=== PATIENT | male | born 1945 | race African-American/Black ===

== ENCOUNTER → 2025-03-18 | Day surgery (SDC) | payer MEDICARE, OTHER ==
[~2025-03-18] VITALS: Ht 188 cm; Wt 65.3 kg
[~2025-03-18] MED LIST: APIX2.5T PO; GABA-1250 PO; GLYCOPYRROLATE 0.2 MG/ML 1ML VIAL ONE; HYDR-4795 PO; HYDROmorphone HCL 2 MG/ML VL/or syr IV PRN; HYDROmorphone HCL 2 MG/ML VL/or syr ONE; ISOS1TAB37 PO; KETAMINE 50mg/ML 10ml Vial 0 ML ONE; KETOROLAC TROMETH 30 MG/ML 1ML VIAL IV ONE; LIDOCAINE 1% INJ PF 5ML AMP ONE; LIDOCAINE HCL 2% TOP JELLY 5ML TOP ONE; METOCLOPRAMIDE HCL 5MG/ml INJ 2ml VIAL IV PRN; MIDAZOLAM HCL 2MG/2ML 2ml VIAL (1mg/ml) ONE; MORPHINE SULFATE 4 MG/ML SYR/VIAL IV PRN; MORPHINE SULFATE INJ 2 MG/ml SYRG IV PRN; NEOSTIGMINE 1 MG/ML INJ (10mg/10ML VIAL) ONE; OMEP20TA PO; ONDANSETRON HCL 4 MG/2 ML VIAL ONE; PROPOFOL 10 MG/ML 20 ML IV ONE; ROCURONIUM 10MG/ML 10ML VIAL IV ONE; SODIUM CHLORIDE LOCK 50 ML ONE; SUCCINYLCHOLINE CHLORIDE 20 MG/ML 10ML VIAL IV ONE; TRAZ-228 PO; ceFAZolin 2 GM/D5W50ml 50 ML IV ONE; fentaNYL CITRATE 100 MCG/2 ML VL ONE
[2025-03-18 06:23] VITALS: BP 160/92; PULSE 95; RESP 18; TEMP 97.8; O2SAT 96
== END | disposition home or self-care (01) ==
LOC: SUR 06:14
PROVIDERS: ATTEND Orthopaedic Surgery Sports Medicine
DX: M75.121 Complete rotator cuff tear or rupture of right shoulder, not specified as traumatic (principal); Z53.8 Procedure and treatment not carried out for other reasons; I48.19 Other persistent atrial fibrillation; Z87.891 Personal history of nicotine dependence
CPT/HCPCS: J0330; J0690; J3010; J0169; J1100; J2250; J2405; J2704

== ENCOUNTER 2025-05-13 07:17 | Inpatient (IN) | payer MEDICARE, OTHER ==
[~2025-05-13] VITALS: Ht 188 cm; Wt 63.7 kg
[~2025-05-13 07:17] MED LIST changes: -GLYCOPYRROLATE 0.2 MG/ML 1ML VIAL ONE; -HYDROmorphone HCL 2 MG/ML VL/or syr IV PRN; -HYDROmorphone HCL 2 MG/ML VL/or syr ONE; -KETAMINE 50mg/ML 10ml Vial 0 ML ONE; -KETOROLAC TROMETH 30 MG/ML 1ML VIAL IV ONE; -LIDOCAINE 1% INJ PF 5ML AMP ONE; -LIDOCAINE HCL 2% TOP JELLY 5ML TOP ONE; -METOCLOPRAMIDE HCL 5MG/ml INJ 2ml VIAL IV PRN; -MIDAZOLAM HCL 2MG/2ML 2ml VIAL (1mg/ml) ONE; -MORPHINE SULFATE 4 MG/ML SYR/VIAL IV PRN; -MORPHINE SULFATE INJ 2 MG/ml SYRG IV PRN; -NEOSTIGMINE 1 MG/ML INJ (10mg/10ML VIAL) ONE; -ONDANSETRON HCL 4 MG/2 ML VIAL ONE; -PROPOFOL 10 MG/ML 20 ML IV ONE; -ROCURONIUM 10MG/ML 10ML VIAL IV ONE; -SODIUM CHLORIDE LOCK 50 ML ONE; -SUCCINYLCHOLINE CHLORIDE 20 MG/ML 10ML VIAL IV ONE; -ceFAZolin 2 GM/D5W50ml 50 ML IV ONE; -fentaNYL CITRATE 100 MCG/2 ML VL ONE
[2025-05-13] MEDS: ceFAZolin 2 GM/D5W50ml 50 ML IV ONE (07:21)
[2025-05-13] MEDS ORDERED: ETOMIDATE (2MG/ML) 20ML VIAL IV ONE (08:26)
[2025-05-13] MEDS ORDERED: LIDOCAINE HCL 2% TOP JELLY 5ML TOP ONE (08:26)
[2025-05-13] MEDS ORDERED: MORPHINE SULF PF 5 MG/10 ML VIAL ONE (08:26)
[2025-05-13] MEDS ORDERED: fentaNYL CITRATE 100 MCG/2 ML VL ONE (08:26)
[2025-05-13] MEDS ORDERED: KETAMINE 50mg/ML 1ml syringe ONE (08:26)
[2025-05-13] MEDS ORDERED: SODIUM CHLORIDE LOCK 50 ML ONE (08:26)
[2025-05-13] MEDS ORDERED: ROCURONIUM 10MG/ML 10ML VIAL IV ONE (08:26)
[2025-05-13] MEDS ORDERED: MIDAZOLAM HCL 2MG/2ML 2ml VIAL (1mg/ml) ONE (08:26)
[2025-05-13] MEDS ORDERED: LIDOCAINE 1% INJ PF 5ML AMP ONE (08:26)
[2025-05-13] MEDS ORDERED: ONDANSETRON HCL 4 MG/2 ML VIAL ONE (08:26)
[2025-05-13] MEDS: BUPIVACAINE HCL 50 ML ONE (09:27)
--- NOTE | 2025-05-13 09:51 | DVHOP2 ---
Operative Report - 2 Report Details Date: 05/13/25 Preop Diagnosis: Right shoulder rotator cuff tear Postop Diagnosis: Right shoulder rotator cuff tear Surgeon: Michelle Shields MD Anesthesiologist: Dr Lemus Anesthesia: General, Regional Consent: The patient was informed of the risks and benefits of the procedure. These include but are not limited to complications of anesthesia, postoperative infection, incomplete relief of symptoms, recurrence of symptoms, damage to blood vessels, nerves and tendons, deep venous thrombosis, pulmonary embolism and possible need for repeat surgery in the future. Estimated Blood Loss: Less than 5 mL Indications for Surgery: The patient is a 79-year-old male who had a prior history of rotator cuff repair. He continued to have significant pain. MRI did not show any significant rotator cuff tear. However because of his symptoms, it was considered that he may have a subscapularis tear or small re-tear of the original repair and a diagnostic arthroscopy was indicated. Benefits, risks and treatment alternatives of the surgery were discussed. Specific complications such as neurovascular injury, infection, arthrofibrosis, loss of limb or life were discussed. He decided to proceed with the surgical option. Name of Procedure Performed Right shoulder arthroscopy with rotator cuff repair. Procedure Details Procedure Details: The patient was identified in the preoperative holding area and the surgical site was marked. The consent was verified. The patient was brought into the operating room and placed supine on the operating table. General anesthesia was administered. The beachchair attachment was applied to the operating table. The patient was now brought up into the beachchair position, approximately 60 degrees. The arm was prepped and draped in the usual sterile manner. The arm was placed in the attachment for the spyder, mechanical arm fisher. The extremity was examined under anesthesia and was found to have good passive range of motion. A timeout was performed to confirm the identity of the patient, the nature of surgery, the site of surgery, the available of implants and x-rays and allergies to medications A standard posterior portal established. A 30 degree scope was inserted A standard anterior portal was established. A probe was inserted and the findings are as follows: 1. Intact subscapularis tendon 2. Minor fraying biceps tendon 3. Circumferential degenerative labral tear 4. Grade I-II chondromalacia 5. Significant synovitis 6. Intact articular sided rotator cuff tear The subacromial space was entered. Significant bursitis was noted. Decompression was carried out with bursectomy. The rotator cuff tear was visualized. This was a near full-thickness bursal sided tear. This was a medium sized tear after debridement. The articular sided cuff tissue was left intact for early mobilization. I decided to do a double row repair for this tear. A medial row all suture anchor was inserted. 2 additional portals were made, the posterior lateral portal and the superior portal for this. A cannula was inserted into the lateral portal. A suture penetration and grasping device was used to grasp the tissue and passed the sutures. The sutures were sequentially passed from anterior to posterior direction. 6 passes were made. The sutures were now tied for an excellent medial row footprint coverage. All six of the sutures were now inserted into a knotless lateral row anchor. This was used as per manufacture's guidelines. A punch was used. Next, the anchor was used and inserted into the bone. Good fixation was noted. Subacromial decompression was completed with acromioplasty to remove approximately 5 mm of acromion as it was downsloping in nature. Irrigation was given and the skin portals were closed with 3-0 nylon Sterile dressing was applied. Local anesthetic was given. Shoulder immobilizer was applied Disposition: Good, the patient was extubated and taken to recovery without any complications. The patient was examined in the recovery and had intact neurovascular exam Plan: To remain in the brace. Follow-up in 1 week. Condition Good Disposition Home MICHELLE SHIELDS MD May 13, 2025 09:51
[2025-05-13] MEDS ORDERED: METOCLOPRAMIDE HCL 5MG/ml INJ 2ml VIAL IV PRN (10:00)
[2025-05-13] MEDS ORDERED: MORPHINE SULFATE INJ 2 MG/ml SYRG IV PRN (10:00)
[2025-05-13] MEDS ORDERED: HYDROmorphone HCL 2 MG/ML VL/or syr IV PRN ×2 (10:00)
[2025-05-13] MEDS ORDERED: MORPHINE SULFATE 4 MG/ML SYR/VIAL IV PRN (10:00)
[2025-05-13 11:27] VITALS: O2SAT 96
--- NOTE | 2025-05-13 12:36 | DVHINCON2 ---
PIERO MILES [facility] 05/13/25 1236: Date Seen: May 13, 2025 Referring Physician MD Beni Reason for Consultation Irregular heart rhythm History of Present Illness This is a pleasant 79-year-old man who presented for an ambulatory right shoulder repair secondary to a nontraumatic partial rupture of the right rotator cough. Preprocedure the patient was found with a blood pressure of 227/125 mmHg for which he was medicated with metoprolol 5 mg IV and hydralazine 5 mg IV. Medical staff at bedside reported during the intubation process the patient's blood pressure dropped (not recorded) with an associated irregular heart rhythm with a rapid ventricular rate. At that time, the patient was medicated with phenylephrine IV, morphine IV, fentanyl IV, and Versed IV. The patient underwen t an eventual 12-lead electrocardiogram revealing a sinus tachycardia rhythm at 116 bpm with an associated RBBB and multiple premature atrial contractions. A second 12-lead electrocardiogram was obtained revealing aforementioned rhythm. Per patient, he underwent cardiac risk stratification by primary medical records specialist Dr. Joiner. At time of assessment, the patient denied any cardiac symptoms. Significant medical history includes congestive heart failure with LVEF at 37% in 2023, history of left lower extremity DVT on low-dose Eliquis, hypertension, dyslipidemia, peripheral neuropathy, eczema, and former cigarette user. Past Medical History Past medical history reviewed. No other significant than mentioned above. Past Surgical History Past surgical history reviewed. No other significant than mentioned above. Family History Family history reviewed. Social History Denies the use of illicit drugs, alcohol, or tobacco use. Allergies: Coded Allergies: NO KNOWN ALLERGIES (Unverified , 03/14/25) Home Meds Reported Medications Apixaban Base (ELIQUIS) 2.5 Mg Tab, PO BID, TAB 03/14/25 Trazodone Hcl (Trazodone Hcl) 100 Mg Tab, 50 MG PO QPM, TAB 03/14/25 Gabapentin (Gabapentin) 300 Mg Cap, 300 MG PO, CAP 03/14/25 Hydrocodone-Acetaminophen (Hydrocodone Bitartrate/AC 7.5-325 mg) 1 Tab Tab, 1 TAB PO PRN, TAB 03/14/25 Omeprazole (Gnp Omeprazole) 20 Mg Tab, 20 MG PO DAILY, TAB 03/14/25 Isosorbide Dinitrate (Isosorbide Dinitrate) 30 Mg Tab, 30 MG PO DAILY, TAB 03/14/25 Home Meds Home medications reviewed. Current Medications Current Medications Medications (Trade) Dose Ordered Sig/Brandi Route PRN Reason Start Time Stop Time Status Last Admin Metoclopramide HCl (Reglan Injection) 10 mg ONCE PRN IV NAUSEA / VOMITING 05/13/25 10:00 05/13/25 11:23 DC Hydromorphone HCl (Dilaudid Injection) 0.5 mg Q10M PRN IV SEVERE PAIN (7-10 PAIN SCALE) 05/13/25 10:00 05/13/25 11:23 DC Morphine Sulfate 2 mg Q4H PRN IV BREAKTHRU PAIN SCALE 7-10 05/13/25 10:00 05/13/25 14:01 Hydromorphone HCl (Dilaudid Injection) 0.25 mg Q10M PRN IV MODERATE PAIN (4-6 PAIN SCALE) 05/13/25 10:00 05/13/25 11:23 DC Morphine Sulfate 1 mg Q30M PRN IV SEVERE PAIN (7-10 PAIN SCALE) 05/13/25 10:00 05/13/25 12:01 DC Review of Systems Constitutional: No symptom reported Ears, Nose, & Throat: No symptom reported Eyes: No symptom reported Neurological: No symptoms reported Pulmonary/Respiratory: No symptom reported Cardiovascular: No symptom reported Gastrointestinal: No symptom reported Genitourinary: No symptom reported Musculoskeletal: Right shoulder pain Skin: No symptom reported Psychiatric: No symptom reported Endocrine: No symptom reported Hemotologic/Lymphatic: No symptom reported Vital Signs Vital Signs Date Time Temp Pulse Resp B/P (MAP) Pulse Ox O2 Delivery O2 Flow Rate FiO2 05/13/25 07:26 97.5 90 18 179/109 (132) 96 97.5 Physical Exam General Appearance: Cooperative. Well developed. Well nourished. In no acute distress Head Exam: Normal inspection Neck Exam: Normal inspection. Non-tender. Normal alignment Pulmonary/Respiratory: Chest non-tender. Clear bilateral breath sounds Cardiovascular/Chest: Regular rate and rhythm. S1, S2. Sinus rhythm with PACs and RBBB. No murmurs. No JVD. Peripheral Pulses: 2+ Radial (R). 2+ Radial (L). 2+ Pedal (R). 2+ Pedal (L) Abdominal Exam: Normal bowel sounds Ankle Exam: Negative ankle edema Lower extremities: Negative lower extremity edema Neuro/Mental Status: A&O x4. Coherent Thoughts/Psych: Normal thought pattern. Appropriate mood and affect. Good judgement and insight Appearance: In no acute distress Skin Exam: Normal inspection. Normal color. Warm. Dry Assessment Hypertensive urgency Intraoperative acute hypotension Chronic compensated HFrEF (LVEF 37% in 2023) History of LLE DVT on low-dose Eliquis Dyslipidemia Former smoker Plan/Recommendation (Dr. Calvin) Preoperatively the patient presented with a hypertensive urgency and was treated accordingly with metoprolol and hydralazine IV. During the intubation process the patient became hypotensive for which he was medicated with phenylephrine, Versed, fentanyl, and morphine. The patient has undergone two 12-lead electrocardiograms revealing a sinus tachycardia rhythm with an associated right bundle branch block and multiple premature atrial contractions. He is hemodyna mically stable. We will continue further cardiac evaluation with a transthoracic echocardiogram to evaluate cardiac function. Monitor ECG changes closely and notify accordingly. In the setting of an unremarkable echocardiogram and no cardiac arrhythmias identified, there is no further cardiac workup indicated at this time. Thank you for allowing us to participate in this patient's care. Please call if you have any questions or concerns. Critical care time: 40 min. This medical document was created using an electronic medical record system with voice recognition software and computerized dictation system. Although this document has been carefully reviewed, there might still be some phonetic and typographical errors. Occasional wrong-word or ``sound-alike substitutions may have occurred due to the inherent limitations of voice recognition software. These areas are purely typographical due to imperfections of the software programs and do not reflect any compromise in the patient's medical care. Please read the chart carefully and recognize, using context, where these substitutions have occurred. Plan discussed with: Patient, Other NYHA Physical activity limitations: NA Date of Service: May 13, 2025 Billing Provider: PIERO MILES [facility] Cardiology Common Codes: 08952-[id number] CARE 30-74 MIN DORENE CALVIN MD 05/13/25 2006: Date Seen: May 13, 2025 Referring Physician Attestation note; Patient was seen and examined at bedside and plan was formulated with Ms. Ivy Miles cardiology [employer] as above. Dorene Calvin MD,M.Sc. Interventional Cardiology Allergies: Coded Allergies: NO KNOWN ALLERGIES (Unverified , 03/14/25) Home Meds Reported Medications Apixaban Base (ELIQUIS) 2.5 Mg Tab, PO BID, TAB 03/14/25 Trazodone Hcl (Trazodone Hcl) 100 Mg Tab, 50 MG PO QPM, TAB 03/14/25 Gabapentin (Gabapentin) 300 Mg Cap, 300 MG PO, CAP 03/14/25 Hydrocodone-Acetaminophen (Hydrocodone Bitartrate/AC 7.5-325 mg) 1 Tab Tab, 1 TAB PO PRN, TAB 03/14/25 Omeprazole (Gnp Omeprazole) 20 Mg Tab, 20 MG PO DAILY, TAB 03/14/25 Isosorbide Dinitrate (Isosorbide Dinitrate) 30 Mg Tab, 30 MG PO DAILY, TAB 03/14/25 PIERO MILES May 13, 2025 12:36 DORENE CALVIN MD May 13, 2025 20:06
--- NOTE | 2025-05-13 13:18 | DVH ---
INDICATION: CHF TECHNIQUE: Frontal view of the chest. COMPARISON: None FINDINGS: Cardiomegaly. The heart and mediastinal contours are grossly unremarkable. There is no evidence of pleural disease. The lungs are clear. The bony structures of the chest are intact without fracture. IMPRESSION: 1. Cardiomegaly with CHF.
[2025-05-13 13:46] LABS: Hematocrit 43.9 % (41.0-53.0); Hemoglobin 14.9 g/dL (13.5-17.5); Mean Corpuscular Hemoglobin 32.9 pg (28.0-32.0); Mean Corpuscular Volume 97.1 fL (80.0-100.0); Nucleated Red Blood Cells % 0.4 %
[2025-05-13] MEDS: KETOROLAC TROMETH 30 MG/ML 1ML VIAL IV ONE ×2 (13:50→22:29)
[2025-05-13 13:59] LABS: Alanine Aminotransferase 27 U/L (7-40); Albumin 4.6 g/dL (3.2-4.8); Alkaline Phosphatase 53 U/L (46-116); Anion Gap 12 (5-15); BUN/Creatinine Ratio 6.5 (10.0-20.0); Bilirubin, Total 1.2 mg/dL (0.2-1.0); Blood Urea Nitrogen 5 mg/dL (9-23); Calcium 9.9 mg/dL (8.7-10.4); Carbon Dioxide 23 mmol/L (20-31); Chloride 104 mmol/L (98-107); Glucose 98 mg/dL (74-106); Magnesium 2.0 mg/dL (1.6-2.6); Potassium 4.1 mmol/L (3.5-5.1); Sodium 139 mmol/L (136-145); Total Protein 7.4 g/dL (5.7-8.2)
[2025-05-13 14:09] LABS: Triglycerides 59 mg/dL (< 150)
[2025-05-13 14:11] LABS: Cholesterol 172 mg/dL (< 200)
[2025-05-13 14:15] LABS: HDL Cholesterol 112 mg/dL (40-59)
--- NOTE | 2025-05-13 14:41 | DVHHP2 ---
History of Present Illness History of Present Illness This is a 79-year-old male with PMHx of DVT, hypertension, dyslipidemia, peripheral neuropathy, eczema, and former tobacco use who was scheduled for elective right rotator cuff repair earlier today. During induction, his BP acutely increased to 227/125 and he received IV metoprolol and hydralazine. Afterthat he started to have low BP and anesthesia staff found an irregular rhythm with rapid ventricular response, although no rhythm strip or printed tracing is available for review. His EKG demonstrated sinus tachycardia with right bundle branch block and both atrial ectopy. He denies chest discomfort, palpitations, or dizziness at this time. At bedside, he is stable and a symptomatic. He is being admitted for observation, cardiac evaluation, and optimization before rescheduling orthopedic surgery. Past Medical History: DVT, hypertension, dyslipidemia, peripheral neuropathy, eczema. Allergies: NKDA. Social History: Former smoker, quit years ago. No alcohol or illicit drug use reported. Family History: Noncontributory. Review of Systems Allergies: Coded Allergies: NO KNOWN ALLERGIES (Unverified , 03/14/25) Medications Current Medications Medications Dose Ordered Sig/Brandi Route Start Time Stop Time Status Last Admin Dose Admin Enoxaparin Sodium 30 mg DAILY SC 05/14/25 10:00 UNV Exam Vital Signs Vital Signs Date Time Temp Pulse Resp B/P (MAP) Pulse Ox O2 Delivery O2 Flow Rate FiO2 05/13/25 13:27 113 21 131/64 (86) 95 05/13/25 11:27 Room Air 05/13/25 11:27 96 05/13/25 07:26 97.5 97.5 Exam General: Alert, not in distress. HEENT: PERRLA, moist mucous membranes. Neck: No JVD. Cardiac: Tachycardic, regular baseline rhythm with intermittent ectopy, no murmurs. Lungs: Clear to auscultation bilaterally. Abdomen: Soft, nontender, nondistended. Extremities: No edema, peripheral pulses intact. Neuro: No focal deficits, AAOx3. Skin: No rashes or lesions aside from baseline eczema. Labs/Xrays Labs Test 05/13/25 13:22 Range/Units White Blood Count 2.3 L 4.4-10.8 10^3/uL Red Blood Count 4.52 4.5-5.90 10^6/uL Hemoglobin 14.9 13.5-17.5 g/dL Hematocrit 43.9 41.0-53.0 % Mean Corpuscular Volume 97.1 80.0-100.0 fL Mean Corpuscular Hemoglobin 32.9 H 28.0-32.0 pg Mean Corpuscular Hemoglobin Concent 33.8 32.0-36.0 g/dL Red Cell Distribution Width 15.9 H 11.8-14.3 % Platelet Count 125 L 140-450 10^3/uL Mean Platelet Volume 8.6 6.9-10.8 fL Neutrophils (%) (Auto) 47.1 37.0-80.0 % Lymphocytes (%) (Auto) 39.2 10.0-50.0 % Monocytes (%) (Auto) 12.4 H 0.0-12.0 % Eosinophils (%) (Auto) 0.6 0.0-7.0 % Basophils (%) (Auto) 0.7 0.0-2.0 % Neutrophils # (Auto) 1.1 L 1.6-8.6 10 ^3/uL Lymphocytes # (Auto) 0.9 0.4-5.4 10 ^3/uL Monocytes # (Auto) 0.3 0-1.3 10 ^3/uL Eosinophils # (Auto) 0 0-0.8 10 ^3/uL Basophils # (Auto) 0 0-0.2 10 ^3/uL Nucleated Red Blood Cells 0.4 % Sodium Level 139 136-145 mmol/L Potassium Level 4.1 3.5-5.1 mmol/L Chloride Level 104 98-107 mmol/L Carbon Dioxide Level 23 20-31 mmol/L Anion Gap 12 5-15 Blood Urea Nitrogen 5 L 9-23 mg/dL Creatinine 0.77 0.700-1.30 mg/dL Glomerular Filtration Rate Calc 92 >90 mL/min BUN/Creatinine Ratio 6.5 L 10.0-20.0 Serum Glucose 98 74-106 mg/dL Calcium Level 9.9 8.7-10.4 mg/dL Magnesium Level 2.0 1.6-2.6 mg/dL Total Bilirubin 1.2 H 0.2-1.0 mg/dL Aspartate Amino Transferase (AST) 45 H 13-40 U/L Alanine Aminotransferase (ALT) 27 7-40 U/L Alkaline Phosphatase 53 46-116 U/L B-Type Natriuretic Peptide 135.19 0-100 pg/mL Total Protein 7.4 5.7-8.2 g/dL Albumin 4.6 3.2-4.8 g/dL Triglycerides Level 59 < 150 mg/dL Cholesterol Level 172 < 200 mg/dL LDL Cholesterol 30 < 100 mg/dL HDL Cholesterol 112 H 40-59 mg/dL SEPSIS Sepsis Screen Physician Orders Oxygen By Face Mask (05/13/25 09:56) Nurse Assessor (05/13/25:56) Notify Anesth. For Changes: (05/13/25 09:56) Pulse Ox Assessment (05/13/25:56) Bear Hugger For Temp <94.5f (05/13/25:56) May Have Head Of Bed Up (05/13/25:56) Follow Iv With Surgeon Orders (05/13/25 09:56) Discharge To Room Per Criteria (05/13/25 09:56) Electrocardigram (05/13/25 11:33) * Cardiology Consult (05/13/25 11:34) * Hospitalist Consult (05/13/25 ) Electrocardigram (05/13/25 12:23) Thyroid Stimulating Hormone (05/13/25 12:36) Chest Portable (05/13/25 12:36) Admit (05/13/25 13:54) Code Status (05/13/25 13:54) Vital Signs .PER UNIT PROTOCOL (05/13/25 13:54) Review Orders With Adm.Md (05/13/25 13:54) Notify Md Of Changes From Base (05/13/25 13:54) Advance Directive (05/13/25 13:54) Patient Condition (05/13/25 13:54) Allergies (05/13/25 13:54) Oxygen By Nasal Cannula (05/13/25 13:54) Stat Ekg For Chest Pain (05/13/25 13:54) Notify Md Of Changes From Base (05/13/25 13:54) Belly Packer For 24 Hours (05/13/25 13:54) Emergency Dysrhythmia Protocol (05/13/25 13:54) Rhythm Strips Once Every Shift (05/13/25 13:54) Enoxaparin Sodium (Lovenox) (05/14/25 10:00) Vital Signs Date Time Temp Pulse Resp B/P (MAP) Pulse Ox O2 Delivery O2 Flow Rate FiO2 05/13/25 13:27 113 21 131/64 (86) 95 05/13/25 12:57 111 15 142/71 (94) 96 05/13/25 12:27 114 15 128/67 (87) 96 05/13/25 12:12 113 17 128/64 (85) 96 05/13/25 11:57 116 17 115/58 (77) 98 05/13/25 11:42 118 19 141/73 (95) 96 05/13/25 11:37 121 18 155/71 (99) 97 05/13/25 11:32 114 16 152/76 (101) 96 05/13/25 11:27 110 24 150/81 (104) 96 05/13/25 11:27 96 Room Air 05/13/25 11:27 Room Air 96 05/13/25 07:26 97.5 90 18 179/109 (132) 96 97.5 Laboratory Tests Test 05/13/25 13:22 White Blood Count 2.3 10^3/uL (4.4-10.8) L Medications Medications Dose Ordered Sig/Brandi Route Start Time Stop Time Status Last Admin Dose Admin Ketorolac Tromethamine 30 mg ONCE ONCE IV 05/13/25 10:00 05/13/25 11:23 DC 05/13/25 13:50 30 MG Assessment/Plan Assessment/Plan #Hypertensive emergency during induction BP reached 227/125 intra-operatively but he is now stable. Continue monitoring. Avoid aggressive IV agents Maintain MAP goal appropriate for age. Losartan PO tomorrow Patient was hypotensive after IV meds: careful titration of the meds #Possible cardiac arrhythmia #Rule out afib Reported irregular rhythm with RVR was not captured. Current EKG shows sinus tachycardia with RBBB and ectopy. No evidence of atrial fibrillation at this time. Continue telemetry. Repeat EKG if rhythm changes. Pending transthoracic echocardiogram to reassess structure and function. HR now on the 110s BB can be started if BPs tolerate later on the day # Rotator cuff tear Orthopedic repair postponed due to intra-operative instability. Provide analg esia. Surgery to be rescheduled after medical stabilization #History of DVT No acute clotting concern. Continue enoxaparin #Peripheral neuropathy #eczema F/u as outpatient FEN/GI Regular diet as tolerated. Replete electrolytes as needed. DVT prophylaxis Enoxaparin subcutaneous Disposition: Admit to telemetry for observation and cardiac workup. Plan discussed with: Patient, Other (rn) My Orders Orders - BLAIRE COSTA Procedure Category Date Status Time Admit ADMIT 05/13/25 Transmitted 13:54 Code Status CODE 05/13/25 Transmitted 13:54 Vital Signs [facility] 05/13/25 In Process 13:54 Review Orders With [facility] 05/13/25 In Process Adm. 13:54 Notify Md Of Changes [facility] 05/13/25 In Process From Base 13:54 Advance Directive [facility] 05/13/25 In Process 13:54 Patient Condition ORDERS 05/13/25 Transmitted 13:54 Allergies [facility] 05/13/25 In Process 13:54 Oxygen By Nasal RT 05/13/25 Transmitted Cannula 13:54 Stat Ekg For Chest [facility] 05/13/25 In Process Pain 13:54 Notify Md Of Changes [facility] 05/13/25 In Process From Base 13:54 Belly Packer For [facility] 05/13/25 In Process 24 Hours 13:54 Emergency Dysrhythmia [facility] 05/13/25 In Process Protocol 13:54 Rhythm Strips Once [facility] 05/13/25 In Process Every Shift 13:54 Date of Service: May 13, 2025 Billing Provider: MIREILLE BLUE MD Common Visit Codes: [id number] INP/OBS CARE (HIGH) BLAIRE COSTA May 13, 2025 14:41
[2025-05-13 16:50] VITALS: BP 155/91; PULSE 64; RESP 18; TEMP 98.5; O2SAT 96
[2025-05-13 17:00] VITALS: BP 155/91; PULSE 64; RESP 18; TEMP 98.5; O2SAT 96
--- NOTE | 2025-05-13 17:30 | DVHSR ---
APPROVED REPORT EXAM: Two-dimensional and M-mode echocardiogram with Doppler and color Doppler. Blood Pressure: 179/109 mmHg INDICATION Heart Failure RISK FACTORS Height: 6'2", Weight: 144 DIMENSIONS LVDd 3.5 (3.8-5.7cm) LA (2D) 2.7 (1.9-4.0cm) Aortic Root 3.4 (2.0-3.7cm) LVDs 1.8 (2.5-4.0cm) LA (MM) (1.9-4.0cm) Aortic Cusp Exc 1.8 (1.5-2.0cm) EF (%) 82.0 (55-70%) Rt. Atrium 3.4 (1.9-4.0cm) Asc. Aorta 3.2 cm IVSd 1.4 (0.7-1.1cm) RV (D) 3.2 (1.8-2.4cm) PWd 0.9 (0.7-1.1cm) Mitral Valve Mitral Mitral Stenosis E/A ratio 0.0 2D MVA cm2 Aortic Valve Aortic Valve Aortic Stenosis V1 1.32m/s AO Mean GR. 7mmHg V2 1.72m/s AO Peak GR. 12mmHg LVOT Diameter 2.1 (1.8-2.4cm) Doppler ROSS 2.66cm2 Pulmonic Valve V2 1.03m/s Tricuspid Valve TR Velocity 2.89m/s RVSP 37mmHg Conclusion Left ventricle: Wall thicknesses is normal. Systolic function is normal. Calculated ejection fraction is 80% . Diastolic function is normal. Right ventricle: Systolic function is normal. Estimated RVSP is 37 mm Hg. Aortic valve: Trileaflet aortic valve. No aortic stenosis or aortic regurgitation. Tricuspid valve: There is mild-moderate tricuspid regurgitation. Pericardium: There is no pericardial effusion. Inferior vena cava: The vessel is normal in size. There is no motor phasic variation consistent with a right atrial pressure of3 mm Hg.
[2025-05-13 20:00] VITALS: PULSE 94
[2025-05-13 21:00] VITALS: BP 141/90; PULSE 94; RESP 17; TEMP 98.5; O2SAT 97
[2025-05-14] VITALS (8 sets, daily range): BP systolic 112–145; BP diastolic 70–87; PULSE 61–86; RESP 17–20; TEMP 97.2–98.8; O2SAT 97–100
[2025-05-14 06:55] LABS: Hematocrit 41.6 % (41.0-53.0); Hemoglobin 14.1 g/dL (13.5-17.5); Mean Corpuscular Hemoglobin 32.9 pg (28.0-32.0); Mean Corpuscular Volume 97.4 fL (80.0-100.0); Nucleated Red Blood Cells % 0.3 %
[2025-05-14 07:16] LABS: Alanine Aminotransferase 19 U/L (7-40); Albumin 4.2 g/dL (3.2-4.8); Alkaline Phosphatase 49 U/L (46-116); Anion Gap 12 (5-15); BUN/Creatinine Ratio 11.5 (10.0-20.0); Blood Urea Nitrogen 11 mg/dL (9-23); Calcium 9.8 mg/dL (8.7-10.4); Carbon Dioxide 27 mmol/L (20-31); Chloride 104 mmol/L (98-107); Glucose 89 mg/dL (74-106); Potassium 4.1 mmol/L (3.5-5.1); Sodium 143 mmol/L (136-145); Total Protein 6.7 g/dL (5.7-8.2)
--- NOTE | 2025-05-14 07:21 | ECG ---
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
[2025-05-14 07:30] LABS: Bilirubin, Total 2.2 mg/dL (0.2-1.0)
[2025-05-14] MEDS: LOSARTAN POTASSIUM 50 MG TAB PO SCH (09:04)
[2025-05-14] MEDS: ENOXAPARIN SOD 30 MG/0.3 ML SYRINGE SC SCH (09:05)
--- NOTE | 2025-05-14 12:41 | DVHPN2 ---
Progress Note - Dictate Date Seen: May 14, 2025 Medical Necessity Reason Pt with a Central, PICC or Fol: No Subjective Patient was lying comfortably in bed during my evaluation reports some continued right shoulder pain that has not changed since his last evaluation but is otherwise feeling well. Patient was brought to the hospital yesterday to undergo a right shoulder arthroscopic rotator cuff repair but during induction he became hypertensive that was not improved with the help of medication and anesthesia found an irregular rhythm with rapid ventricular response and canceled the surgery. Patient reports that he was evaluated this morning by hospitalist and his currently being monitored and worked up due to his hypertensive emergency. vital signs Vital Sign Date Time Temp Pulse Resp B/P (MAP) Pulse Ox O2 Delivery O2 Flow Rate FiO2 05/14/25 09:04 145/87 05/14/25 09:00 97.3 67 18 98 97.3 05/14/25 08:00 Room Air* 0 21 Total Intake and Output 05/13/25 05/13/25 05/14/25 15:00 23:00 07:00 Intake Total 100 ml 0 ml 118 ml Output Total 250 ml Balance -150 ml 0 ml 118 ml medications Current Medications Medications Dose Ordered Sig/Brandi Route Start Time Stop Time Status Last Admin Dose Admin Enoxaparin Sodium 30 mg DAILY SC 05/14/25 10:00 05/14/25 09:05 30 MG Losartan Potassium 50 mg DAILY PO 05/14/25 10:00 05/14/25 09:04 50 MG objective General appearance: A&O x4 in no acute distress HEENT: Normal ENT inspection, pharynx normal, TMs normal Neck: Full range of motion, nontender, normal inspection Respiratory: Chest nontender, without accessory muscle use, no respiratory distress Cardiovascular: No edema, no JVD, normal peripheral pulses Gastrointestinal: Soft, nontender, no organomegaly. Musculoskeletal: Right shoulder range of motion grossly in intact with pain on movement, no calf tenderness, normal capillary refill, no pedal edema, neurovascularly intact. Skin: Dry, normal color, warm Lymphatic: No adenopathy laboratory and microbiology Laboratory Tests 05/14/25 06:23 Test 05/14/25 06:23 Range/Units Serum Glucose 89 74-106 mg/dL Assessment/Plan Continue current management. We will continue monitoring patient and observing for his hypertensive emergency and possible cardiac arrhythmia and we will follow cardiology recommendations. Plan discussed with: Patient ENA SHORT May 14, 2025 12:41
[2025-05-14] MEDS: KETOROLAC TROMETH 30 MG/ML 1ML VIAL IV ONE (13:22)
--- NOTE | 2025-05-14 19:13 | DVHPNRES ---
Progress Note Date Seen: May 14, 2025 Resident Creating Document: SHALINI BEYER Medical Necessity Reason Pt with a Central, PICC or Fol: No Subjective Review of Systems This is a 79-year-old male with a past medical history of DVT, hypertension, dyslipidemia, peripheral neuropathy, eczema, who was scheduled for elective right rotator cuff repair earlier yesterday 05/13/25. During induction, his blood pressure acutely increased to 227/125 mmHg, and he received IV metoprolol and hydralazine. After that, he developed hypotension, and the anesthesia team noted an irregular rhythm with rapid ventricular response, although no rhythm strip or printed tracing is available for review. EKG shows sinus tachycardia with right bundle branch block and atrial ectopy. He is being admitted to cardiac clearance prior to rescheduling orthopedic surgery. On evaluation today, patient reports right shoulder pain, present for several years, described as constant, 8/10, and radiating to the neck and right arm with associated tingling and numbness of the fingers. Pain worsens with movement. Past surgical history: None Allergies: NKDA. Social History: Former smoker, quit years ago. Alcohol : >40 years, 2-3 can of bears. Drug: denied. Family History: Noncontributory. Home medication: Eliquis Unknown Dose PO BID, Gabapentin 300 Mg PO, Hydrocodone- Acetaminophen 1 Tab PO PRN, Isosorbide Dinitrate 30 Mg PO DAILY, Omeprazole 20 Mg PO DAILY, Trazodone 50 Mg PO QPM Patient seen and examined at bedside. Patient is alert and oriented to time, place person and responding to all questions. Eyes: No Pain, No Vision change, No Conjunctivae inflammation, No Eyelid inflammation, No Other, No Redness ENT: No Ear pain, No Ear discharge, No Nose pain, No Nose discharge, No Nose congestion, No Mouth pain, No Mouth swelling, No Throat pain, No Throat swelling, No Other Cardiovascular: No Chest Pain, No Palpitations, No Orthopnea, No Paroxysmal No Dyspnea, No Edema, No Lt Headedness, No Other Respiratory: No Cough, No Dry, No Shortness of breath, No SOB with exertion, No Wheezing, No Hemoptysis, No Pleuritic Pain, No Sputum, No Other Gastrointestinal: No Nausea, No Vomiting, No Abdominal Pain, No Diarrhea, No Constipation, No Melena, No Hematochezia, No Other Genitourinary: No Dysuria, No Frequency, No Incontinence, No Hematuria, No Retention, No Other Musculoskeletal: No other, neck pain, shoulder pain, arm pain, No back pain, h and pain, No leg pain, No foot pain Skin: No Rash, No Lesions, No Jaundice, No Bruising, No Other Objective vital signs Vital Sign Date Time Temp Pulse Resp B/P (MAP) Pulse Ox O2 Delivery O2 Flow Rate FiO2 05/14/25 16:27 98.0 61 20 142/87 (105) 97 98.0 05/14/25 08:00 Room Air* 0 21 Total Intake and Output 05/13/25 05/13/25 05/14/25 15:00 23:00 07:00 Intake Total 100 ml 0 ml 118 ml Output Total 250 ml Balance -150 ml 0 ml 118 ml medications Current Medications Medications Dose Ordered Sig/Brandi Route Start Time Stop Time Status Last Admin Dose Admin Enoxaparin Sodium 30 mg DAILY SC 05/14/25 10:00 05/14/25 09:05 30 MG Losartan Potassium 50 mg DAILY PO 05/14/25 10:00 05/14/25 09:04 50 MG Examination General Appearance: Cooperative. Well developed. Well nourished. NAD Head Exam: Normal inspection Neck Exam: Normal inspection. Non-tender. Normal alignment Pulmonary/Respiratory: Chest non-tender. Clear bilateral breath sounds, no crackles, no wheezing. Cardiovascular/Chest: Tachycardic, regular baseline rhythm with intermittent ectopy, no murmurs. Peripheral Pulses: 2+ Radial (R). 2+ Radial (L). 2+ Pedal (R). 2+ Pedal (L) Abdominal Exam: Normal bowel sounds. Soft. normal abdomen, no visible veins, Nontender. No hepatospenomegaly. No masses Ankle Exam: Negative ankle edema Upper extremities: Right shoulder range of motion is limited; the patient is unable to raise the right arm above 90 degrees due to pain. Lower extremities: Negative lower extremity edema Neuro/Mental Status: A&O x4. Coherent. Thoughts/Psych: Normal thought pattern. Appropriate mood and affect. Good judgement and insight Skin Exam: Normal inspection. Normal color. Warm. Dry laboratory and microbiology Laboratory Tests 05/14/25 06:23 Test 05/14/25 06:23 Range/Units Serum Glucose 89 74-106 mg/dL Labs and/or images reviewed: Labs reviewed by me, Image(s) reviewed by me Problem List/Assessment/Plan Problem List/Assessment/Plan #Hypertensive emergency during induction #Acute on chronic, diastolic, congestive heart failure (HFpEF, EF 80%) #Possible cardiac arrhythmia #Rule out Afib Echocardiogram: Left ventricular wall thickness and systolic/diastolic function are normal with an EF of 80%. Right ventricular systolic function is normal, and estimated RVSP is 37 mm Hg. Aortic valve is trileaflet without stenosis or regurgitation. There is [id number] tricuspid regurgitation. No pericardial effusion is present. Inferior vena cava is normal in size with respiratory variation consistent with a right atrial pressure of approximately 3 mm Hg. Chest X-ray: Cardiomegaly with CHF. EKG: Sinus tachycardia with premature atrial complexes. Right bundle branch block. Left anterior fascicular block. Bifascicular block. Septal infarct , age undetermined Losartan 50 PO daily pain management with Toradol # Rotator cuff tear Orthopedic consult: Continue current management. We will continue monitoring patient and observing for his hypertensive emergency and possible cardiac arrhythmia and we will follow cardiology recommendations. Cardiology consult: The patient presented preoperatively with hypertensive urgency, which was treated with IV metoprolol and hydralazine. During intubation, the patient experienced hypotension and received phenylephrine, Versed, fentanyl, and morphine. Two 12-lead ECGs showed sinus tachycardia with right bundle branch block and multiple premature atrial contractions, but the patient remains hemodynamically stable. A transthoracic echocardiogram is planned for further cardiac evaluation. If the echocardiogram is unremarkable and no arrhythmias are identified, no additional cardiac workup is needed. Continuous ECG monitoring is recommended. #History of DVT Lovenox 60 MG SC q12hr #Peripheral neuropathy #Eczema F/u as outpatient Diet: Cardiac Goals of care: Full code Plan discussed with patient Plan discussed with Dr. Paul Plan discussed with: Patient, Spouse, Other (RN) My Orders My Orders Orders - SHALINI BEYER Procedure Category Date Status Time Complete Blood Count LAB 05/15/25 Verified 04:00 Basic Metabolic Panel LAB 05/15/25 Verified 04:00 Visit Coding STANDARD RES Billing Provider: MIREILLE PAUL MD Date of Service if different f: May 14, 2025 Common Visit Codes: [id number] INP/OBS CARE(HIGH) SHALINI BEYER May 14, 2025 19:13
[2025-05-14] MEDS: HYDROcodone-ACET 5/325MG TAB PO PRN (21:17)
[2025-05-14] MEDS: ENOXAPARIN SOD 60 MG/0.6 ML SYRINGE SC SCH (21:57)
[2025-05-15] VITALS (9 sets, daily range): BP systolic 113–146; BP diastolic 68–98; PULSE 61–108; RESP 17–18; TEMP 97.8–98.4; O2SAT 96–98
[2025-05-15 06:36] LABS: Chloride 105 mmol/L (98-107); Potassium 4.1 mmol/L (3.5-5.1); Sodium 143 mmol/L (136-145)
[2025-05-15 06:37] LABS: Anion Gap 10 (5-15); Carbon Dioxide 28 mmol/L (20-31)
[2025-05-15 06:38] LABS: Calcium 9.9 mg/dL (8.7-10.4)
[2025-05-15 06:42] LABS: BUN/Creatinine Ratio 10.6 (10.0-20.0); Blood Urea Nitrogen 10 mg/dL (9-23); Glucose 89 mg/dL (74-106)
[2025-05-15 07:26] LABS: Hematocrit 42.0 % (41.0-53.0); Hemoglobin 14.1 g/dL (13.5-17.5); Mean Corpuscular Hemoglobin 32.7 pg (28.0-32.0); Mean Corpuscular Volume 97.5 fL (80.0-100.0)
[2025-05-15 08:08] LABS: Total Cells Counted 100.0 (100)
--- NOTE | 2025-05-15 11:46 | DVHPNRES ---
Progress Note Date Seen: May 15, 2025 Resident Creating Document: SHALINI BEYER Medical Necessity Reason Pt with a Central, PICC or Fol: No Subjective Review of Systems This is a 79-year-old male with a past medical history of DVT, hypertension, dyslipidemia, peripheral neuropathy, eczema, who was scheduled for elective right rotator cuff repair earlier yesterday 05/13/25. During induction, his blood pressure acutely increased to 227/125 mmHg, and he received IV metoprolol and hydralazine. After that, he developed hypotension, and the anesthesia team noted an irregular rhythm with rapid ventricular response, although no rhythm strip or printed tracing is available for review. EKG shows sinus tachycardia with right bundle branch block and atrial ectopy. He is being admitted to cardiac clearance prior to rescheduling orthopedic surgery. On evaluation today, patient reports right shoulder pain, present for several years, described as constant, 8/10, and radiating to the neck and right arm with associated tingling and numbness of the fingers. Pain worsens with movement. On 05/15/25, The patient is still complaining of right shoulder pain rated 8/10. The case was discussed with Dr. Shields from Orthopedics regarding surgery. The plan is to reschedule the surgery on an outpatient basis once Cardiology recommends that it is safe to proceed. Past surgical history: None Allergies: NKDA. Social History: Former smoker, quit years ago. Alcohol : >40 years, 2-3 can of bears. Drug: denied. Family History: Noncontributory. Home medication: Eliquis Unknown Dose PO BID, Gabapentin 300 Mg PO, Hydrocodone- Acetaminophen 1 Tab PO PRN, Isosorbide Dinitrate 30 Mg PO DAILY, Omeprazole 20 Mg PO DAILY, Trazodone 50 Mg PO QPM Patient seen and examined at bedside. Patient is alert and oriented to time, place person and responding to all questions. Eyes: No Pain, No Vision change, No Conjunctivae inflammation, No Eyelid inflammation, No Other, No Redness ENT: No Ear pain, No Ear discharge, No Nose pain, No Nose discharge, No Nose congestion, No Mouth pain, No Mouth swelling, No Throat pain, No Throat swelling, No Other Cardiovascular: No Chest Pain, No Palpitations, No Orthopnea, No Paroxysmal No Dyspnea, No Edema, No Lt Headedness, No Other Respiratory: No Cough, No Dry, No Shortness of breath, No SOB with exertion, No Wheezing, No Hemoptysis, No Pleuritic Pain, No Sputum, No Other Gastrointestinal: No Nausea, No Vomiting, No Abdominal Pain, No Diarrhea, No Constipation, No Melena, No Hematochezia, No Other Genitourinary: No Dysuria, No Frequency, No Incontinence, No Hematuria, No Retention, No Other Musculoskeletal: No other, neck pain, shoulder pain, arm pain, No back pain, h and pain, No leg pain, No foot pain Skin: No Rash, No Lesions, No Jaundice, No Bruising, No Other Objective vital signs Vital Sign Date Time Temp Pulse Resp B/P (MAP) Pulse Ox O2 Delivery O2 Flow Rate FiO2 05/15/25 09:00 98.1 108 17 146/98 (114) 97 98.1 05/15/25 08:00 Room Air* 0 21 Total Intake and Output 05/14/25 05/14/25 05/15/25 15:00 23:00 07:00 Intake Total 1540 ml 700 ml Balance 1540 ml 700 ml medications Current Medications Medications Dose Ordered Sig/Brandi Route Start Time Stop Time Status Last Admin Dose Admin Losartan Potassium 50 mg DAILY PO 05/14/25 10:00 05/15/25 08:50 50 MG Acetaminophen/ Hydrocodone Bitart 1 tab [id number] PRN PO 05/14/25 21:00 05/15/25 08:49 1 TAB Enoxaparin Sodium 60 mg Q12HR SC 05/14/25 22:00 05/15/25 08:50 60 MG Examination General Appearance: Cooperative. Well developed. Well nourished. NAD Head Exam: Normal inspection Neck Exam: Normal inspection. Non-tender. Normal alignment Pulmonary/Respiratory: Chest non-tender. Clear bilateral breath sounds, no crackles, no wheezing. Cardiovascular/Chest: Tachycardic, regular baseline rhythm with intermittent ectopy, no murmurs. Peripheral Pulses: 2+ Radial (R). 2+ Radial (L). 2+ Pedal (R). 2+ Pedal (L) Abdominal Exam: Normal bowel sounds. Soft. normal abdomen, no visible veins, Nontender. No hepatospenomegaly. No masses Ankle Exam: Negative ankle edema Upper extremities: Right shoulder range of motion is limited; the patient is unable to raise the right arm above 90 degrees due to pain. Lower extremities: Negative lower extremity edema Neuro/Mental Status: A&O x4. Coherent. Thoughts/Psych: Normal thought pattern. Appropriate mood and affect. Good judgement and insight Skin Exam: Normal inspection. Normal color. Warm. Dry laboratory and microbiology Laboratory Tests 05/15/25 05:17 Test 05/15/25 05:17 Range/Units Serum Glucose 89 74-106 mg/dL Labs and/or images reviewed: Labs reviewed by me, Image(s) reviewed by me Problem List/Assessment/Plan Problem List/Assessment/Plan #Hypertensive emergency during induction #Acute on chronic, diastolic, congestive heart failure (HFpEF, EF 80%) #Possible cardiac arrhythmia #Rule out Afib Echocardiogram: Left ventricular wall thickness and systolic/diastolic function are normal with an EF of 80%. Right ventricular systolic function is normal, and estimated RVSP is 37 mm Hg. Aortic valve is trileaflet without stenosis or regurgitation. There is [id number] tricuspid regurgitation. No pericardial effusion is present. Inferior vena cava is normal in size with respiratory variation consistent with a right atrial pressure of approximately 3 mm Hg. Chest X-ray: Cardiomegaly with CHF. EKG: Sinus tachycardia with premature atrial complexes. Right bundle branch block. Left anterior fascicular block. Bifascicular block. Septal infarct , age undetermined Losartan 50 PO daily pain management with Toradol #Rotator cuff tear Orthopedic consult: Continue current management. We will continue monitoring patient and observing for his hypertensive emergency and possible cardiac arrhythmia and we will follow cardiology recommendations. The patient may be discharged if stabilized from a cardiac standpoint. We will reschedule surgery on an outpatient basis once Cardiology recommends that it is safe to proceed. Cardiology consult: The patient presented preoperatively with hypertensive urgency, which was treated with IV metoprolol and hydralazine. During intubation, the patient experienced hypotension and received phenylephrine, Versed, fentanyl, and morphine. Two 12-lead ECGs showed sinus tachycardia with right bundle branch block and multiple premature atrial contractions, but the patient remains hemodynamically stable. A transthoracic echocardiogram is planned for further cardiac evaluation. If the echocardiogram is unremarkable and no arrhythmias are identified, no additional cardiac workup is needed. Continuous ECG monitoring is recommended. #History of DVT Lovenox 60 MG SC q12hr #Peripheral neuropathy #Eczema F/u as outpatient Diet: Cardiac Goals of care: Full code Plan discussed with patient Plan discussed with Dr. Paul Plan discussed with: Patient, Other (RN) Visit Coding STANDARD RES Billing Provider: MIREILLE PAUL MD Date of Service if different f: May 15, 2025 Common Visit Codes: [id number] INP/OBS CARE(HIGH) SHALINI BEYER RESIDENT May 15, 2025 11:46
[2025-05-15 13:42] LABS: Urine Protein, UAD Negative (Negative)
[2025-05-15] MEDS: HYDROcodone-ACET 5/325MG TAB PO PRN (13:43)
[2025-05-15 13:59] LABS: Opiate Scree,Urine Pos (NEGATIVE)
[2025-05-15 14:00] LABS: Amphetamine Screen, Urine Neg (NEGATIVE); Barbiturate Scree,Urine Neg (NEGATIVE); Benzodiazephine Screen, Urine Neg (NEGATIVE); Cannabinoid Screen, Urine Neg (NEGATIVE); Cocaine Screen, Urine Neg (NEGATIVE); Phencyclidine Screen, Urine Neg (NEGATIVE)
[2025-05-16] VITALS (9 sets, daily range): BP systolic 106–137; BP diastolic 69–89; PULSE 59–79; RESP 16–19; TEMP 97.3–98.2; O2SAT 96–99
[2025-05-16 07:04] LABS: Hematocrit 42.8 % (41.0-53.0); Hemoglobin 14.4 g/dL (13.5-17.5); Mean Corpuscular Hemoglobin 32.9 pg (28.0-32.0); Mean Corpuscular Volume 98.2 fL (80.0-100.0); Nucleated Red Blood Cells % 0.1 %
[2025-05-16 07:19] LABS: Anion Gap 9 (5-15); Carbon Dioxide 29 mmol/L (20-31); Chloride 106 mmol/L (98-107); Potassium 4.3 mmol/L (3.5-5.1); Sodium 144 mmol/L (136-145)
[2025-05-16 07:21] LABS: Calcium 9.8 mg/dL (8.7-10.4)
[2025-05-16 07:25] LABS: BUN/Creatinine Ratio 8.7 (10.0-20.0); Glucose 88 mg/dL (74-106)
[2025-05-16 07:34] LABS: Blood Urea Nitrogen 8 mg/dL (9-23)
--- NOTE | 2025-05-16 11:33 | ECG ---
[facility] Test Date: 2025-05-16 Test Time: 11:21:07 Pat Name: LAURIE DOW Department: Room: 0294T A Gender: M [employer] Hand: HARPAL : 1945 Requested By: SHALINI YOU Order Number: [id number] Reading MD: Chapito Grigsby Measurements Intervals [place] Rate: 71 P: 27 WV: 141 QRS: -72 QRSD: 122 T: 12 QT: 410 QTc: 446 Interpretive Statements Sinus rhythm RBBB and LAFB Electronically Signed On 05-22-2025 18:19:16 PST by Chapito Grigsby Please click the below link to view image of tracing.
[2025-05-16] MEDS: METOPROLOL TARTRATE 25 MG TAB PO ONE (12:32)
[2025-05-16] MEDS ORDERED: LOSA-534 PO (12:44)
--- NOTE | 2025-05-16 15:28 | DVHPNRES ---
Progress Note Date Seen: May 16, 2025 Resident Creating Document: SHALINI BEYER Medical Necessity Reason Pt with a Central, PICC or Fol: No Subjective Review of Systems This is a 79-year-old male with a past medical history of DVT, hypertension, dyslipidemia, peripheral neuropathy, eczema, who was scheduled for elective right rotator cuff repair earlier on 05/13/25. During induction, his blood pressure acutely increased to 227/125 mmHg, and he received IV metoprolol and hydralazine. After that, he developed hypotension, and the anesthesia team noted an irregular rhythm with rapid ventricular response, although no rhythm strip or printed tracing is available for review. EKG shows sinus tachycardia with right bundle branch block and atrial ectopy. He is being admitted stabilization of his condition prior to rescheduling orthopedic surgery. On evaluation today, patient reports right shoulder pain, present for several years, described as constant, 8/10, and radiating to the neck and right arm with associated tingling and numbness of the fingers. Pain worsens with movement. On 05/15/25, The patient is still complaining of right shoulder pain rated 8/10. The case was discussed with Dr. Shields from Orthopedics regarding surgery. The plan is to reschedule the surgery on an outpatient basis once Cardiology recommends that it is safe to proceed. On 05/16/25, The patient experienced a one-minute episode of nonsustained supraventricular tachycardia (SVT) with heart rate reaching the 150s, as reported by telemetry. The patient was asymptomatic and denied chest pain, shortness of breath, or palpitations. Ordered metoprolol tartrate 12.5 mg PO once now and schedule metoprolol tartrate 12.5 mg PO twice daily. Discharge has been held for today for further monitoring. Past surgical history: None Allergies: NKDA. Social History: Former smoker, quit years ago. Alcohol : >40 years, 2-3 can of bears. Drug: denied. Family History: Noncontributory. Home medication: Eliquis Unknown Dose PO BID, Gabapentin 300 Mg PO, Hydrocodone- Acetaminophen 1 Tab PO PRN, Isosorbide Dinitrate 30 Mg PO DAILY, Omeprazole 20 Mg PO DAILY, Trazodone 50 Mg PO QPM Patient seen and examined at bedside. Patient is alert and oriented to time, place person and responding to all questions. Eyes: No Pain, No Vision change, No Conjunctivae inflammation, No Eyelid inflammation, No Other, No Redness ENT: No Ear pain, No Ear discharge, No Nose pain, No Nose discharge, No Nose congestion, No Mouth pain, No Mouth swelling, No Throat pain, No Throat swelling, No Other Cardiovascular: No Chest Pain, No Palpitations, No Orthopnea, No Paroxysmal No Dyspnea, No Edema, No Lt Headedness, No Other Respiratory: No Cough, No Dry, No Shortness of breath, No SOB with exertion, No Wheezing, No Hemoptysis, No Pleuritic Pain, No Sputum, No Other Gastrointestinal: No Nausea, No Vomiting, No Abdominal Pain, No Diarrhea, No Constipation, No Melena, No Hematochezia, No Other Genitourinary: No Dysuria, No Frequency, No Incontinence, No Hematuria, No Retention, No Other Musculoskeletal: No other, neck pain, shoulder pain, arm pain, No back pain, h and pain, No leg pain, No foot pain Skin: No Rash, No Lesions, No Jaundice, No Bruising, No Other Objective vital signs Vital Sign Date Time Temp Pulse Resp B/P (MAP) Pulse Ox O2 Delivery O2 Flow Rate FiO2 05/16/25 13:00 97.5 63 16 137/76 (96) 98 97.5 05/16/25 08:00 Room Air* 0 21 Total Intake and Output 05/15/25 05/15/25 05/16/25 15:00 23:00 07:00 Intake Total 800 ml 300 ml Output Total 2 ml Balance 800 ml 298 ml medications Current Medications Medications Dose Ordered Sig/Brandi Route Start Time Stop Time Status Last Admin Dose Admin Losartan Potassium 50 mg DAILY PO 05/14/25 10:00 05/16/25 08:29 50 MG Enoxaparin Sodium 60 mg Q12HR SC 05/14/25 22:00 05/16/25 08:29 60 MG Acetaminophen/ Hydrocodone Bitart 1 tab Q4HPRN PRN PO 05/15/25 13:15 05/16/25 12:31 1 TAB Metoprolol Tartrate 12.5 mg BID PO 05/16/25 22:00 Examination General Appearance: Cooperative. Well developed. Well nourished. Head Exam: Normal inspection Neck Exam: Normal inspection. Non-tender. Normal alignment Pulmonary/Respiratory: Chest non-tender. Clear bilateral breath sounds, no crackles, no wheezing. Cardiovascular/Chest: Tachycardic, regular baseline rhythm with intermittent ectopy, no murmurs. Peripheral Pulses: 2+ Radial (R). 2+ Radial (L). 2+ Pedal (R). 2+ Pedal (L) Abdominal Exam: Normal bowel sounds. Soft. normal abdomen, no visible veins, Nontender. No hepatospenomegaly. No masses Ankle Exam: Negative ankle edema Upper extremities: Right shoulder range of motion is limited; the patient is unable to raise the right arm above 90 degrees due to pain. Lower extremities: Negative lower extremity edema Neuro/Mental Status: A&O x4. Coherent. Thoughts/Psych: Normal thought pattern. Appropriate mood and affect. Good judgement and insight Skin Exam: Normal inspection. Normal color. Warm. Dry laboratory and microbiology Laboratory Tests 05/16/25 05:49 Test 05/16/25 05:49 Range/Units Serum Glucose 88 74-106 mg/dL Labs and/or images reviewed: Labs reviewed by me, Image(s) reviewed by me Problem List/Assessment/Plan Problem List/Assessment/Plan #Hypertensive emergency #Acute on chronic, diastolic, congestive heart failure (HFpEF, EF 80%) #Supraventricular tachycardia (SVT) - asymptomatic Echocardiogram: Left ventricular wall thickness and systolic/diastolic function are normal with an EF of 80%. Right ventricular systolic function is normal, and estimated RVSP is 37 mm Hg. Aortic valve is trileaflet without stenosis or regurgitation. There is teie-dx-fasjarkn tricuspid regurgitation. No pericardial effusion is present. Inferior vena cava is normal in size with respiratory variation consistent with a right atrial pressure of approximately 3 mm Hg. Chest X-ray: Cardiomegaly with CHF. EKG: Sinus tachycardia with premature atrial complexes. Right bundle branch block. Left anterior fascicular block. Bifascicular block. Septal infarct , age undetermined Losartan 50 PO daily pain management with Toradol Metoprolol tartrate 12.5 mg PO once Metoprolol tartrate 12.5 mg PO daily #Rotator cuff tear Orthopedic consult: Continue current management. We will continue monitoring patient and observing for his hypertensive emergency and possible cardiac arrhythmia and we will follow cardiology recommendations. The patient may be discharged if stabilized from a cardiac standpoint. We will reschedule surgery on an outpatient basis once Cardiology recommends that it is safe to proceed. CLEARED. Cardiology consult: The patient presented preoperatively with hypertensive urgency, which was treated with IV metoprolol and hydralazine. During intubation, the patient experienced hypotension and received phenylephrine, Versed, fentanyl, and morphine. Two 12-lead ECGs showed sinus tachycardia with right bundle branch block and multiple premature atrial contractions, but the patient remains hemodynamically stable. A transthoracic echocardiogram is planned for further cardiac evaluation. If the echocardiogram is unremarkable and no arrhythmias are identified, no additional cardiac workup is needed. Continuous ECG monitoring is recommended. CLEARED. #History of DVT Lovenox 60 MG SC q12hr #Peripheral neuropathy #Eczema F/u as outpatient Diet: Cardiac Goals of care: Full code Plan discussed with patient Plan discussed with Dr. Paul Plan discussed with: Patient, Spouse, Other (RN) Visit Coding STANDARD RES Billing Provider: MIREILLE PAUL MD Date of Service if different f: May 16, 2025 Common Visit Codes: [id number] INP/OBS CARE(HIGH) SHALINI BEYER RESIDENT May 16, 2025 15:28 SANDOVAL PEREZ RESIDENT May 16, 2025 19:59
[2025-05-16] MEDS: METOPROLOL TARTRATE 25 MG TAB PO SCH (21:38)
[2025-05-17 01:00] VITALS: BP 102/66; PULSE 59; RESP 18; TEMP 98.3; O2SAT 99
[2025-05-17 04:51] VITALS: BP 98/60; PULSE 56; RESP 18; TEMP 98.4; O2SAT 95
[2025-05-17 06:55] LABS: Hematocrit 40.4 % (41.0-53.0); Hemoglobin 13.5 g/dL (13.5-17.5); Mean Corpuscular Hemoglobin 32.6 pg (28.0-32.0); Mean Corpuscular Volume 97.8 fL (80.0-100.0); Nucleated Red Blood Cells % 0.2 %
[2025-05-17 07:07] LABS: Alanine Aminotransferase 15 U/L (7-40); Albumin 4.0 g/dL (3.2-4.8); Alkaline Phosphatase 48 U/L (46-116); Anion Gap 9 (5-15); BUN/Creatinine Ratio 7.0 (10.0-20.0); Bilirubin, Total 1.1 mg/dL (0.2-1.0); Calcium 9.5 mg/dL (8.7-10.4); Carbon Dioxide 29 mmol/L (20-31); Chloride 105 mmol/L (98-107); Glucose 86 mg/dL (74-106); Potassium 4.1 mmol/L (3.5-5.1); Sodium 143 mmol/L (136-145); Total Protein 6.4 g/dL (5.7-8.2)
[2025-05-17 07:11] LABS: Blood Urea Nitrogen 6 mg/dL (9-23)
[2025-05-17 08:33] VITALS: BP 122/74; PULSE 61; RESP 18; TEMP 98; O2SAT 98
--- NOTE | 2025-05-17 11:40 | DVHDSRES ---
Discharge Summary Date of Admission Resident Creating Document: KEYLA CHATTERJEE RESIDENT May 13, 2025 at 13:54 Date of Discharge: May 16, 2025 Admitting Diagnosis Hypertensive emergency suspected cardiac arrhythmia Labs/Diagnostic Data: Laboratory Results Test 05/17/25 05:29 05/15/25 13:03 05/15/25 05:17 05/13/25 13:22 White Blood Count 3.0 10^3/uL (4.4-10.8) Red Blood Count 4.13 10^6/uL (4.5-5.90) Hemoglobin 13.5 g/dL (13.5-17.5) Hematocrit 40.4 % (41.0-53.0) Mean Corpuscular Volume 97.8 fL (80.0-100.0) Mean Corpuscular Hemoglobin 32.6 pg (28.0-32.0) Mean Corpuscular Hemoglobin Concent 33.3 g/dL (32.0-36.0) Red Cell Distribution Width 15.1 % (11.8-14.3) Platelet Count 107 10^3/uL (140-450) Mean Platelet Volume 9.1 fL (6.9-10.8) Neutrophils (%) (Auto) 33.3 % (37.0-80.0) Lymphocytes (%) (Auto) 47.9 % (10.0-50.0) Monocytes (%) (Auto) 17.1 % (0.0-12.0) Eosinophils (%) (Auto) 1.2 % (0.0-7.0) Basophils (%) (Auto) 0.5 % (0.0-2.0) Neutrophils # (Auto) 1.0 10 ^3/uL (1.6-8.6) Lymphocytes # (Auto) 1.4 10 ^3/uL (0.4-5.4) Monocytes # (Auto) 0.5 10 ^3/uL (0-1.3) Eosinophils # (Auto) 0 10 ^3/uL (0-0.8) Basophils # (Auto) 0 10 ^3/uL (0-0.2) Nucleated Red Blood Cells 0.2 % Sodium Level 143 mmol/L (136-145) Potassium Level 4.1 mmol/L (3.5-5.1) Chloride Level 105 mmol/L (98-107) Carbon Dioxide Level 29 mmol/L (20-31) Anion Gap 9 (5-15) Blood Urea Nitrogen 6 mg/dL (9-23) Creatinine 0.86 mg/dL (0.700-1.30) Glomerular Filtration Rate Calc 89 mL/min (>90) BUN/Creatinine Ratio 7.0 (10.0-20.0) Serum Glucose 86 mg/dL (74-106) Calcium Level 9.5 mg/dL (8.7-10.4) Total Bilirubin 1.1 mg/dL (0.2-1.0) Aspartate Amino Transferase (AST) 18 U/L (13-40) Alanine Aminotransferase (ALT) 15 U/L (7-40) Alkaline Phosphatase 48 U/L (46-116) Total Protein 6.4 g/dL (5.7-8.2) Albumin 4.0 g/dL (3.2-4.8) Urine Color Yellow (Yellow) Urine Clarity Clear (Clear) Urine pH 7.0 (5.0-9.0) Urine Specific [place] 1.019 (1.001-1.035) Urine Protein Negative (Negative) Urine Ketones Negative (Negative) Urine Blood Negative /uL (Negative) Urine Nitrite Negative (Negative) Urine Bilirubin Negative (Negative) Urine Urobilinogen 4 mg/dL (Negative) Urine Leukocyte Esterase Negative /uL (Negative) Urine RBC 1 /hpf (0 - 3) Urine Microscopic WBC 1 /HPF (0-3) Urine Squamous Epithelial Cells Few /hpf (<5) Urine Bacteria Few /hpf (None Seen) Urine Mucus Few (None Seen) Urine Sperm Present /hpf (None Seen) Urine Glucose Normal mg/dL (Normal) Urine Opiates Screen Pos (NEGATIVE) Urine Fentanyl Screen Neg (NEGATIVE) Urine Barbiturates Screen Neg (NEGATIVE) Urine Phencyclidine Screen Neg (NEGATIVE) Urine Amphetamines Screen Neg (NEGATIVE) Urine Benzodiazepines Screen Neg (NEGATIVE) Urine Cocaine Screen Neg (NEGATIVE) Urine Cannabinoids Screen Neg (NEGATIVE) Differential Total Cells Counted 100.0 (100) Neutrophils % (Manual) 34 (37.0-80.0) Band Neutrophils % (Manual) 0 Lymphocytes % (Manual) 48 (10.0-50.0) Monocytes % (Manual) 18 (0-12) Eosinophils % (Manual) 0 (0-7) Basophils % (Manual) 0 (0.0-2.0) Metamyelocytes % (manual) 0 Myelocytes % (Manual) 0 Promyelocytes % (Manual) 0 Blast Cells % (Manual) 0 Reactive Lymphocytes 0 Platelet Estimate Decreased Magnesium Level 2.0 mg/dL (1.6-2.6) B-Type Natriuretic Peptide 135.19 pg/mL (0-100) Triglycerides Level 59 mg/dL (< 150) Cholesterol Level 172 mg/dL (< 200) LDL Cholesterol 30 mg/dL (< 100) HDL Cholesterol 112 mg/dL (40-59) Thyroid Stimulating Hormone (TSH) 0.58 uIU/mL (0.55-4.78) Other Laboratory Tests 05/17/25 05:29 Brief Hx & Hospital Course: This is a 79-year-old male with a past medical history of DVT, hypertension, dyslipidemia, peripheral neuropathy, eczema, who was scheduled for elective right rotator cuff repair earlier on 05/13/25. During induction, his blood pressure acutely increased to 227/125 mmHg, and he received IV metoprolol and hydralazine. After that, he developed hypotension, and the anesthesia team noted an irregular rhythm with rapid ventricular response, although no rhythm strip or printed tracing is available for review. EKG shows sinus tachycardia with right bundle branch block and atrial ectopy. He is being admitted stabilization of his condition prior to rescheduling orthopedic surgery. On evaluation today, patient reports right shoulder pain, present for several years, described as constant, 8/10, and radiating to the neck and right arm with associated tingling and numbness of the fingers. Pain worsens with movement.On 05/16/25, The patient experienced a one-minute episode of nonsustained supraventricular tachycardia (SVT) with heart rate reaching the 150s, as reported by telemetry. The patient was asymptomatic and denied chest pain, shortness of breath, or palpitations. Patient was metoprolol tartrate 12.5 mg PO once now and schedule metoprolol tartrate 12.5 mg PO twice daily. Discharge has been held for today for further monitoring. No overnight evidence of SVT. The case was discussed with Dr. Shields from Orthopedics regarding surgery. The plan is to reschedule the surgery on an outpatient basis once Cardiology recommends that it is safe to proceed. Patient is being discharged home with the metoprolol 12.5 mg p.o. b.i.d.. Patient was hemodynamically stable on discharge, all questions answered. Patient was advised to follow up with DC clinic, PCP, cardiology, surgery. General examination- awake, alert, oriented HEENT- PEERLA, no acute nasal discharge Cardiovascular- S1-S2 audible, rate and rhythm regular, no murmur Respiratory- CTAB, no wheeze or rhonchi Gastrointestinal-nontender, bowel sound+. Nondistended Musculoskeletal-no acute joint swelling or tenderness or redness Lower extremity- no leg edema Neurological- cranial nerves intact, no acute dysarthria or dysphagia Psychiatry- denies depression or SI or HI Skin- no acute rash or purpura Plan of care discussed with Dr. Don Consults/Reason for consult Patient: PALOMA ,LAURIE Mayo Acct: [id number] : 1945 Loc: [facility] Age/Sex: 79/M [id number] Progress Note - Dictate Date Seen: May 14, 2025 Medical Necessity Reason Pt with a Central, PICC or Fol: No Subjective Patient was lying comfortably in bed during my evaluation reports some continued right shoulder pain that has not changed since his last evaluation but is otherwise feeling well. Patient was brought to the hospital yesterday to undergo a right shoulder arthroscopic rotator cuff repair but during induction he became hypertensive that was not improved with the help of medication and anesthesia found an irregular rhythm with rapid ventricular response and canceled the surgery. Patient reports that he was evaluated this morning by hospitalist and his currently being monitored and worked up due to his hypertensive emergency. vital signs Vital Sign Date Time Temp Pulse Resp B/P (MAP) Pulse Ox O2 Delivery O2 Flow Rate FiO2 05/14/25 09:04 145/87 05/14/25 09:00 97.3 67 18 98 97.3 05/14/25 08:00 Room Air* 0 21 Total Intake and Output 05/13/25 05/13/25 05/14/25 15:00 23:00 07:00 Intake Total 100 ml 0 ml 118 ml Output Total 250 ml Balance -150 ml 0 ml 118 ml medications Current Medications Medications Dose Ordered Sig/Brandi Route Start Time Stop Time Status Last Admin Dose Admin Enoxaparin Sodium 30 mg DAILY SC 05/14/25 10:00 05/14/25 09:05 30 MG Losartan Potassium 50 mg DAILY PO 05/14/25 10:00 123/25 09:04 50 MG objective General appearance: A&O x4 in no acute distress HEENT: Normal ENT inspection, pharynx normal, TMs normal Neck: Full range of motion, nontender, normal inspection Respiratory: Chest nontender, without accessory muscle use, no respiratory distress Cardiovascular: No edema, no JVD, normal peripheral pulses Gastrointestinal: Soft, nontender, no organomegaly. Musculoskeletal: Right shoulder range of motion grossly in intact with pain on movement, no calf tenderness, normal capillary refill, no pedal edema, neurovascularly intact. Skin: Dry, normal color, warm Lymphatic: No adenopathy laboratory and microbiology Laboratory Tests 05/14/25 06:23 Test 05/14/25 06:23 Range/Units Serum Glucose 89 74-106 mg/dL Assessment/Plan Continue current management. We will continue monitoring patient and observing for his hypertensive emergency and possible cardiac arrhythmia and we will follow cardiology recommendations. Plan discussed with: Patient ENA SHORT May 14, 2025 12:41 E/M VISIT PERFORMED BY: TRANSCRIBED BY:ENA SHORT TRANSCRIBED DATE/TIME:05/14/25 124 ELECTRONICALLY SIGNED BY:ENA SHORT 05/14/25 124 ELECTRONICALLY CO-SIGNED BY: Patient: LAURIE DOW JR Acct: [id number] : 1945 Loc: [facility] Age/Sex: 79/M Room: / Bed: Attending Phy: DAVID SHIELDS MD Operative Report - 2 Report Details Date: 05/13/25 Surgeon: David Shields MD Anesthesiologist: Dr Lemus Anesthesia: General, Regional Consent: The patient was informed of the risks and benefits of the procedure. These include but are not limited to complications of anesthesia, postoperative infection, incomplete relief of symptoms, recurrence of symptoms, damage to blood vessels, nerves and tendons, deep venous thrombosis, pulmonary embolism and possible need for repeat surgery in the future. Estimated Blood Loss: Less than 5 mL Indications for Surgery: The patient is a 79-year-old male who had a prior history of rotator cuff repair. He continued to have significant pain. MRI did not show any significant rotator cuff tear. However because of his symptoms, it was considered that he may have a subscapularis tear or small re-tear of the original repair and a diagnostic arthroscopy was indicated. Benefits, risks and treatment alternatives of the surgery were discussed. Specific complications such as neurovascular injury, infection, arthrofibrosis, loss of limb or life were discussed. He decided to proceed with the surgical option. Name of Procedure Performed Right shoulder arthroscopy with rotator cuff repair. Procedure Details Procedure Details: The patient was identified in the preoperative holding area and the surgical site was marked. The consent was verified. The patient was brought into the operating room and placed supine on the operating table. General anesthesia was administered. The beachchair attachment was applied to the operating table. The patient was now brought up into the beachchair position, approximately 60 degrees. The arm was prepped and draped in the usual sterile manner. The arm was placed in the attachment for the [employer], mechanical arm fisher. The extremity was examined under anesthesia and was found to have good passive range of motion. A timeout was performed to confirm the identity of the patient, the nature of surgery, the site of surgery, the available of implants and x-rays and allergies to medications A standard posterior portal established. A 30 degree scope was inserted A standard anterior portal was established. A probe was inserted and the findings are as follows: 1. Intact subscapularis tendon 2. Minor fraying biceps tendon 3. Circumferential degenerative labral tear 4. Grade I-II chondromalacia 5. Significant synovitis 6. Intact articular sided rotator cuff tear The subacromial space was entered. Significant bursitis was noted. Decompression was carried out with bursectomy. The rotator cuff tear was visualized. This was a near full-thickness bursal sided tear. This was a medium sized tear after debridement. The articular sided cuff tissue was left intact for early mobilization. I decided to do a double row repair for this tear. A medial row all suture anchor was inserted. 2 additional portals were made, the posterior lateral portal and the superior portal for this. A cannula was inserted into the lateral portal. A suture penetration and grasping device was used to grasp the tissue and passed the sutures. The sutures were sequentially passed from anterior to posterior direction. 6 passes were made. The sutures were now tied for an excellent medial row footprint coverage. All six of the sutures were now inserted into a knotless lateral row anchor. This was used as per manufacture's guidelines. A punch was used. Next, the anchor was used and inserted into the bone. Good fixation was noted. Subacromial decompression was completed with acromioplasty to remove approximately 5 mm of acromion as it was downsloping in nature. Irrigation was given and the skin portals were closed with 3-0 nylon Sterile dressing was applied. Local anesthetic was given. Shoulder immobilizer was applied Disposition: Good, the patient was extubated and taken to recovery without any complications. The patient was examined in the recovery and had intact neurovascular exam Plan: To remain in the brace. Follow-up in 1 week. DAVID SHIELDS MD May 13, 2025 09:51 DICTATED BY:DAVID SHIELDS MD DICTATED DATE/TIME:05/13/25 0988 ELECTRONICALLY SIGNED BY: ELECTRONICALLY CO-SIGNED BY: Operations or Procedures [place] [id number] Ph: [phone] DIAGNOSTIC IMAGING Diagnostic Imaging Report : [id number] Signed PATIENT: LAURIE DOW JR DACCT: [id number] UNIT: [id number] : 1945 LOC: [facility] ROOM / BED: [address] [place] [address] AGE / SEX: 79 / M ADM STATUS: ADM IN SERVICE 1236 ORDERING PHYSICIAN: PIERO MILES PROCEDURE(s): ECIDC - ECHO 2D MODE CARDIAC DOP REASON: CHF ORDER NUMBER(s): [id number], ACCESSION NUMBER(s): [id number] APPROVED REPORT EXAM: Two-dimensional and M-mode echocardiogram with Doppler and color Doppler. Blood Pressure: 179/109 mmHg INDICATION Heart Failure RISK FACTORS Height: 6'2", Weight: 144 DIMENSIONS LVDd 3.5 (3.8-5.7cm) LA (2D) 2.7 (1.9-4.0cm) Aortic Root 3.4 (2.0- 3.7cm) LVDs 1.8 (2.5-4.0cm) LA (MM) (1.9-4.0cm) Aortic Cusp Exc 1.8 (1.5- 2.0cm) EF (%) 82.0 (55-70%) Rt. Atrium 3.4 (1.9-4.0cm) Asc. Aorta 3.2 cm IVSd 1.4 (0.7-1.1cm) RV (D) 3.2 (1.8-2.4cm) PWd 0.9 (0.7-1.1cm) Mitral Valve Mitral Mitral Stenosis E/A ratio 0.0 2D MVA cm2 Aortic Valve Aortic Valve Aortic Stenosis V1 1.32m/s AO Mean GR. 7mmHg V2 1.72m/s AO Peak GR. 12mmHg LVOT Diameter 2.1 (1.8-2.4cm) Doppler ROSS 2.66cm2 Pulmonic Valve V2 1.03m/s Tricuspid Valve TR Velocity 2.89m/s RVSP 37mmHg Conclusion Left ventricle: Wall thicknesses is normal. Systolic function is normal. Calculated ejection fraction is 80% . Diastolic function is normal. Right ventricle: Systolic function is normal. Estimated RVSP is 37 mm Hg. Aortic valve: Trileaflet aortic valve. No aortic stenosis or aortic regurgitation. Tricuspid valve: There is mild-moderate tricuspid regurgitation. Pericardium: There is no pericardial effusion. Inferior vena cava: The vessel is normal in size. There is no motor phasic variation consistent with a right atrial pressure of3 mm Hg. SIGNED BY: BENJA CALVIN MD SIGNED DATE/TIME: 05/13/25 1739 CC: [place] [id number] Ph: [phone] DIAGNOSTIC IMAGING Diagnostic Imaging Report : [id number] Signed PATIENT: LAURIE DOW JR DACCT: [id number] UNIT: [id number] : 1945 LOC: [facility] ROOM / BED: / AGE / SEX: 79 / M ADM STATUS: REG [facility] SERV[facility] 1236 ORDERING PHYSICIAN: PIERO MILES PROCEDURE(s): CXRP - CHEST PORTABLE REASON: CHF ORDER NUMBER(s): [id number], ACCESSION NUMBER(s): [id number] INDICATION: CHF TECHNIQUE: Frontal view of the chest. COMPARISON: None FINDINGS: Cardiomegaly. The heart and mediastinal contours are grossly unremarkable. There is no evidence of pleural disease. The lungs are clear. The bony structures of the chest are intact without fracture. IMPRESSION: 1. Cardiomegaly with CHF. ATED BY: FLORIDA MARCELINO MD DICTATED DATE/TIME: 05/13/251315 SIGNED BY: FLORIDA MARCELINO MD SIGNED DATE/TIME: 05/13/251315 CC: Condition at Discharge: Stable Final Diagnosis/Problems List #Hypertensive emergency #Acute on chronic, diastolic, congestive heart failure (HFpEF, EF 80%) # supra Ventricular tachycardia #Ruled out Afib #Rotator cuff tear #History of DVT #Peripheral neuropathy #Eczema Discharge Disposition: Home Discharge Instruct/Medications Diet: Cardiac 2g Na,low cholest Activity: Light activity Follow Up/Referral: Follow up with orthodepic clinic outpatient Dr. Shields within 1 week DC clinic PCP Cardiology Medications: See prescription continue home medications Scheduled Apixaban Base (Eliquis), Unknown Dose PO BID, (Reported) Hydrocodone-Acetaminophen (Hydrocodone Bitartrate/AC 7.5-325 mg), 1 TAB PO PRN, (Reported) Isosorbide Dinitrate (Isosorbide Dinitrate), 30 MG PO DAILY, (Reported) Metoprolol Tartrate (Metoprolol Tartrate), 12.5 MG PO BID Omeprazole (Gnp Omeprazole), 20 MG PO DAILY, (Reported) Trazodone Hcl (Trazodone Hcl), 50 MG PO QPM, (Reported) Scheduled PRN Losartan Potassium (Losartan Potassium), 50 MG PO DAILY PRN Miscellaneous Medications Gabapentin (Gabapentin), 300 MG PO, (Reported) Discharge Statement: "Patient was advised to return to the ER or call 911 if any headaches, dizziness, shortness of breath, chest pain, abdominal pain, bleeding, fevers, or worsening of medical condition. Patient was counseled about treatment plan, medications, possible side effects, patientverbalized understanding. All questions were answered to the best of my ability. This discharge took greater then 30 minutes in planning, reviewing documentation, counseling the patient, and discussing with other team members." ASSESSMENT ASSESSMENT Assessment #Hypertensive emergency during induction #Acute on chronic, diastolic, congestive heart failure (HFpEF, EF 80%) #Possible cardiac arrhythmia #Ruled out Afib #Rotator cuff tear #History of DVT #Peripheral neuropathy #Eczema Visit Coding STANDARD RES Billing Provider: LAZARO DON MD Date of Service if different f: May 17, 2025 Common Visit Codes: 07004-RBQ/OBS DISCH DAY >30min KEYLA CHATTERJEE RESIDENT May 17, 2025 11:40
[2025-05-17 12:04] VITALS: BP 122/74; PULSE 61; TEMP 36.7
[2025-05-17] MEDS ORDERED: METO25TA5 PO (12:32)
[2025-05-17 12:41] VITALS: BP 113/69; PULSE 59; RESP 17; TEMP 98.6; O2SAT 97
== END 2025-05-17 13:20 | disposition home or self-care (01) | DRG 304 ==
LOC: SUR 07:17 → OVERFLOW 13:54 → TELE-WESTW 16:38
PROVIDERS: ADMIT Internal Medicine Geriatric Medicine; ATTEND Internal Medicine Geriatric Medicine
DX: I16.1 Hypertensive emergency (principal); I50.33 Acute on chronic diastolic (congestive) heart failure; I11.0 Hypertensive heart disease with heart failure; I47.10 Supraventricular tachycardia, unspecified; M75.121 Complete rotator cuff tear or rupture of right shoulder, not specified as traumatic; L30.9 Dermatitis, unspecified; I45.10 Unspecified right bundle-branch block; I95.9 Hypotension, unspecified; E78.5 Hyperlipidemia, unspecified; G62.9 Polyneuropathy, unspecified; Z86.718 Personal history of other venous thrombosis and embolism; Z87.891 Personal history of nicotine dependence
CPT/HCPCS: 36415; 71045; 80048; 80053; 80061; 80307; 81001; 83735; 83880; 84443; 85007; 85025; 85027; 93005; 93306; A4565; G0378; J0169; J1885; J2250; J2405; J3490